=== PATIENT | female | born 1965 | race Caucasian/White ===

== ENCOUNTER → 2017-03-19 | Outpatient (CLI) | payer BC ==
--- NOTE | 2017-03-19 11:49 | RAD ---
DATE: 03/19/2017 EXAM: DIGITAL SCREEN BILAT W/CAD HISTORY: Screening. The history of bilateral breast reductive surgery has been provided COMPARISON: None. This is a baseline exam. This study was interpreted with the benefit of Computerized Aided Detection (CAD). FINDINGS: Breast Density: HETERO The breast parenchyma Is heterogeneouslyy dense, which could reduce sensitivity of mammography. Breast parenchyma level C. The left breast is unremarkable. On the MLO view of the right breast there is a nodular opacity seen inferiorly just below the plane of the nipple. A corresponding finding is not definitely seen on the cc view. A coned compression MLO view and an ML view are suggested for additional evaluation IMPRESSION: Possible developing nodule right breast. Additional imaging suggested as outlined above BI-RADS CATEGORY: 0 INCOMPLETE: NEED ADDITIONAL IMAGING EVAULATION AND/OR PRIOR MAMMOGRAMS FOR COMPARISON RECOMMENDED FOLLOW-UP: ADD ADDITIONAL IMAGING PQRS compliance statement: Patient information was entered into a reminder system with a target due date soon for the next mammogram. Mammography is a sensitive method for finding small breast cancers, but it does not detect them all and is not a substitute for careful clinical examination. A negative mammogram does not negate a clinically suspicious finding and should not result in delay in biopsying a clinically suspicious abnormality. "Our facility is accredited by the [employer] Mammography [employer]."
== END | disposition home or self-care (01) ==
LOC: MAMMO 09:08
PROVIDERS: ATTEND Obstetrics & Gynecology
DX: Z12.31 Encounter for screening mammogram for malignant neoplasm of breast (principal)
CPT/HCPCS: G0202; 77067

== ENCOUNTER → 2017-03-28 | Outpatient (CLI) | payer BC ==
--- NOTE | 2017-03-28 13:34 | RAD ---
EXAM: DIGITAL DIAGNOSTIC RT, BREAST RIGHT HISTORY: Possible asymmetry on screening examination COMPARISON: 03/19/2017 Spot compression MLO and lateral view of the right breast was obtained. This study was interpreted with the benefit of Computerized Aided Detection (CAD). FINDINGS: The breast parenchyma is heterogeneously dense, which could reduce sensitivity of mammography. Breast parenchyma level C.. There is repeat demonstration of a small asymmetry within the right inferior breast. Given the presence of this finding the patient was then sent to ultrasound to further evaluate. Ultrasound findings: Focused ultrasound images were obtained of the right inferior breast. Glandular and fatty tissue is seen without a definite mass or fluid collection identified. IMPRESSION: Small asymmetry seen within the right inferior breast without a definite correlate on ultrasound. The most likely cause is that this is just part of the patient's background glandular tissue but given that there is no comparison available for review a follow-up right breast diagnostic tomographic examination could be obtained in 6 months to ensure no increase. BI-RADS CATEGORY: 3 PROBABLE BENIGN-SHORT TERM F/U RECOMMENDED FOLLOW-UP: 6M 6 MONTH FOLLOW-UP PQRS compliance statement: Patient information was entered into a reminder system with a target due date for the next mammogram. Mammography is a sensitive method for finding small breast cancers, but it does not detect them all and is not a substitute for careful clinical examination. A negative mammogram does not negate a clinically suspicious finding and should not result in delay in biopsying a clinically suspicious abnormality. "Our facility is accredited by the [employer] Mammography [employer]."
== END | disposition home or self-care (01) ==
LOC: MAMMO 11:14
PROVIDERS: ATTEND Physician Assistant
DX: N64.89 Other specified disorders of breast (principal)
CPT/HCPCS: 76641; G0206; 77065

== ENCOUNTER 2021-04-17 15:00 | Emergency (ER) | payer SELFPAY ==
[~2021-04-17] VITALS: Ht 170.2 cm; Wt 92.6 kg
[2021-04-17] MEDS ORDERED: ONDANSETRON PF 4 MG/2 ML VIAL. ONE (15:10)
[2021-04-17] MEDS ORDERED: NALOXONE 0.4 MG/ML VIAL. ONE (15:14)
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
--- NOTE | 2021-04-17 15:34 | EKG ---
[address] [address] Test Date: 2021-04-17 Test Time: 15:17:12 Pat Name: GIANNA DAILEY Department: Room: Gender: F Information Systems Operator: JOCELYNE : 1965 Requested By: SINCERE STEPHENSON Order Number: [id number] Reading MD: Blake Juarez Measurements Intervals [place] Rate: 56 P: 0 NC: 162 QRS: 23 QRSD: 94 T: 22 QT: 512 QTc: 497 Interpretive Statements SINUS RHYTHM PROLONGED QT Electronically Signed On 04-22-2021 9:37:22 HEAD OF ACQUISITIONS by Blake Juarez
[2021-04-17 15:36] LABS: BASO # 0.1 x10^3/uL (0.0-0.2); BASO % 1 % (0-3); EOS # 0.1 x10^3/uL (0.0-0.7); EOS % 1 % (0-3); HEMATOCRIT 44.7 % (36.0-47.0); HEMOGLOBIN 15.1 g/dL (12.0-15.5); LYMPH # 2.7 x10^3/uL (1.0-4.8); LYMPH % 31 % (24-48); MEAN CORPUSCULAR HEMOGLOBIN 31 pg (25-35); MEAN CORPUSCULAR HGB CONC 34 g/dL (31-37); MEAN CORPUSCULAR VOLUME 91 fL (79-100); MONO # 0.6 x10^3/uL (0.0-1.1); MONO % 6 % (0-9); NEUT # 5.3 x10^3uL (1.8-7.7); NEUT % 61 % (31-73); PLATELET COUNT 257 x10^3/uL (140-400); RED BLOOD COUNT 4.91 x10^6/uL (3.50-5.40); RED CELL DISTRIBUTION WIDTH 13.1 % (11.5-14.5); WHITE BLOOD COUNT 8.7 x10^3/uL (4.0-11.0)
[2021-04-17 15:46] LABS: CALCIUM 9.5 mg/dL (8.5-10.1); CREATININE 0.8 mg/dL (0.6-1.0); GFR 74.7; POTASSIUM 4.2 mmol/L (3.5-5.1)
--- NOTE | 2021-04-17 15:46 | RAD ---
EXAM: Head CT without contrast. HISTORY: Altered mental status. TECHNIQUE: Computed tomographic images of the head were obtained without contrast. *One or more of the following individualized dose reduction techniques were utilized for this examina tion: 1. Automated exposure control. 2. Adjustment of the mA and/or kV according to patient size. 3. Use of iterative reconstruction technique. COMPARISON: None. FINDINGS: There is no acute or subacute extra-axial or intraparenchymal hemorrhage. There is no mass effect or midline shift. There is no hydrocephalus. There are areas of decreased attenuation within the cerebral white matter, nonspecific and likely rel ated to chronic small vessel disease. The visualized portions of the orbits, paranasal sinuses and mastoid air cells are unremarkable. No s uspicious calvarial lesion is seen. IMPRESSION: No acute intracranial finding. Note is made that MRI is more sensitive for acute infarcti on. Electronically signed by: Chastity Cook MD (04/17/2021 3:43 PM) [id number]
--- NOTE | 2021-04-17 15:47 | RAD ---
EXAM: Chest, single view. HISTORY: Altered mental status. COMPARISON: None. FINDINGS: A frontal view of the chest is obtained. There is no infiltrate, pleural effusion or pneumo thorax. The heart is normal in size. IMPRESSION: No acute pulmonary finding. Electronically signed by: Chastity Cook MD (04/17/2021 3:45 PM) [id number]
[2021-04-17 15:50] LABS: MAGNESIUM 2.4 mg/dL (1.8-2.4)
[2021-04-17 16:50] VITALS: BP 111/62
[2021-04-17 16:57] LABS: BARBITURATES NEG (NEG); BENZODIAZEPINES POS (NEG); CANNABINOIDS NEG (NEG); COCAINE NEG (NEG); METHADONE NEG (NEG); OPIATES NEG (NEG); PHENCYCLIDINE NEG (NEG)
[2021-04-17 17:05] LABS: AMPHETAMINE/METHAMPHETAMINE POS (NEG)
[2021-04-17 17:18] LABS: BACTERIA,URINE 0 /HPF (0-FEW); BILIRUBIN,URINE NEG (NEG); CLARITY,URINE CLEAR; COLOR,URINE YELLOW; GLUCOSE,URINE >=1000 mg/dL (NEG); NITRITE,URINE NEG (NEG); RBC,URINE 0 /HPF (0-2); SQUAMOUS EPITHELIAL CELL,UR MOD /LPF; UROBILINOGEN,URINE 0.2 mg/dL (0.2 mg/dL)
== END 2021-04-17 18:07 | disposition home or self-care (01) ==
LOC: ER 15:00
DX: F13.90 Sedative, hypnotic, or anxiolytic use, unspecified, uncomplicated (principal); F41.9 Anxiety disorder, unspecified; Z88.5 Allergy status to narcotic agent; Z88.6 Allergy status to analgesic agent
CPT/HCPCS: 36415; 70450; 71045; 80048; 80307; 81001; 82140; 82550; 82947; 83605; 83735; 84484; 85025; 87040; 93005; 99285-25